=== PATIENT | female | born 1995 | race Two or more races ===

== ENCOUNTER 2023-01-24 05:20 | Inpatient (IN) | payer OTHER ==
[~2023-01-24] VITALS: Ht 157.5 cm; Wt 99.8 kg
[2023-01-24] MEDS ORDERED: PRENATAL TABLE1 EAC1 PO (06:32)
[2023-01-24] MEDS ORDERED: IRON325 MG PO (06:33)
== END 2023-01-26 18:09 | disposition home or self-care (01) | DRG 807 ==
LOC: LDR 05:20 → OB/GYN 05:20
PROVIDERS: ADMIT Specialist; ATTEND Specialist
PROC: 10E0XZZ Delivery of Products of Conception, External Approach (ICD-10-PCS; principal; 2023-01-24)
PROC: 0W8NXZZ Division of Female Perineum, External Approach (ICD-10-PCS; 2023-01-24)
PROC: 4A1HXCZ Monitoring of Products of Conception, Cardiac Rate, External Approach (ICD-10-PCS; 2023-01-24)
DX: O99.824 Streptococcus B carrier state complicating childbirth (principal); Z37.0 Single live birth; Z3A.39 39 weeks gestation of pregnancy; Z20.822 Contact with and (suspected) exposure to COVID-19